=== PATIENT | male | born 1970 | race Caucasian/White ===

== ENCOUNTER 2016-04-08 11:18 | Emergency (ER) | payer MEDICAID ==
[2016-04-08 11:48] VITALS: BMI 33.3
[2016-04-08 11:49] VITALS: TEMP 98
--- NOTE | 2016-04-08 12:51 | EDPRACDOC ---
- General Information Chief Complaint: Neuro Symptoms/Deficits Stated Complaint: SZ Time Seen by Provider: 04/08/16 12:08 Information Source: Family, Guardian, Wood Gouger Mode Of Arrival: Ambulance Home Medications: Home Medications Buspirone HCl [Buspar] 10 mg PO TID 01/06/13 Divalproex Sodium [Depakote] 1,500 mg PO QHS #120 tab 01/01/16 Clotrimazole & Betamethasone [Lotrisone Cream] 2 gm TOP BID 01/19/16 Allergies/Adverse Reactions: Allergies Allergy/AdvReac Type Severity Reaction Status Date / Time omeprazole [From Prilosec] Allergy See Verified 04/08/16 12:55 Comments omeprazole magnesium Allergy See Verified 04/08/16 12:55 [From Prilosec] Comments - History of Present Illness Onset: [employer] Medications/Treatment [employer] EMS Treatment BLS,C-Collar IV No HPI: Patient was apparently getting something out of his closet when he fell backwards, clinical care leader states he was "out of it" for about a minute. He had no seizure like activity - patient has known seizures. Patient had no loss of bowel or bladder, no tongue biting. Patient's beef pusher states he is back to baseline. Does not know if there was LOC. Seizure vs LOC from fall and striking his head. 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 Location: Reports: Occipital Associated Signs and Symptoms: Reports: Seizures ED Past Medical History - History Reviewed Yes Nurses notes reviewed and agree except as marked - Patient Medical History Neurological History: Reports: Seizures Psychological History: Reports: Anxiety. Denies: Depression Systemic History: Denies: Cancer Surgical History: Reports: Tonsillectomy/Adnoidectomy, Other (ESOPHAGEAL DILATION) - Family Medical History Reports: Hypertension, Stroke, Cardiac Disorders. Denies: Diabetes, Cancer - Social Medical History Smoking Status: Never smoker Lives In: Home EDM Review of Systems - Review of Systems ROS Negative Except as Marked: Yes All systems reviewed and were negative except as marked ROS Unobtainable: Yes Review of systems cannot be obtained due to the patient's medical condition - Physical Exam Constitutional: Alert (Awake), No apparent distress Last recorded Vital Signs: Last Vital Signs Temp 98 F 04/08/16 11:48 Pulse 74 04/08/16 11:48 Resp 18 04/08/16 11:48 BP 122/74 04/08/16 11:48 Pulse Ox 97 04/08/16 11:48 Oxygen Pulse Oxygen Saturation 97 O2 Device Oxygen Flow Rate Fraction of Inspired Oxygen ( FIO2) - HEENT Head: Normal ( normocephalic) Eye Exam: Normal (PERRL, EOMI, Sclera white) Nose: No Symptoms Reported (septum midline) Neck: Normal (FROM, trachea at midline) - Respiratory/Cardiovascular Respiratory: Normal - CTA (BBS clear to auscultation without adventitious sounds ) Cardiovascular: Normal (RRR without murmur, gallop or rub) - GI Auscultation: Normal (NABS) Tenderness: Non tender - Musculoskeletal Back: Normal (Non-Tender) Extremities: Normal (Normal tone, Pulses 2+ No cyanosis or edema, FROM) - Integumentary Skin: Normal, Warm, Dry - Re-evaluation Re-evaluation 1 Re-evaluation Time: 14:13 Discussed with patient's family - negative CT scans, patient ambulatory to restroom without difficulty. Followup with PCP, return if worse/different. - Results 04/08/16 12:56 04/08/16 12:56 Decision Time to Discharge: 14:15 - Departure Disposition: Home Condition: Good Final Diagnosis: Fall Qualifiers: Encounter type: initial encounter Qualified Code(s): W19.XXXA - Unspecified fall, initial encounter Minor head injury Qualifiers: Encounter type: initial encounter Qualified Code(s): S00.90XA - Unspecified superficial injury of unspecified part of head, initial encounter Instructions: Fall Prevention (ED) Education/Counseling Given To: Family Member Education/Counseling Given Regarding: Diagnosis, Treatment, Prognosis, Follow Up Referrals: Reinaldo Byrd MD [Primary Care Provider] - 1-2 days Prescriptions: No Action Buspirone HCl [Buspar] 10 mg PO TID Divalproex Sodium [Depakote] 1,500 mg PO QHS #120 tab Clotrimazole & Betamethasone [Lotrisone Cream] 2 gm TOP BID Additional Instructions: Please followup with PCP in 1-2days. Return to ED if symptoms worsen/change or concerns arise. Continue at home management.
[2016-04-08 13:08] LABS: MPV 7.9 fL (7.4-10.4)
[2016-04-08 13:21] LABS: BLOOD UREA NITROGEN 10 MG/DL (9-20); CALC CORRECTED 9.1 MG/DL (8.4-10.2); CALCIUM 8.1 MG/DL (8.4-10.2); CALCULATED OSMOLALITY 258 MOs/Kg (270-290); CHLORIDE 101 mEq/L (98-107); GLUCOSE 88 MG/DL (70-99); SODIUM LEVEL 135 mEq/L (137-146); TOTAL PROTEIN 6.4 G/DL (6.3-8.2)
[2016-04-08] MEDS ORDERED: BUSPIRONE 10 MG TAB PO ONE (13:24)
[2016-04-08 13:26] LABS: VALPROIC ACID LEVEL 67.1 MCG/ML (50-100)
--- NOTE | 2016-04-08 13:42 | DIRPT ---
CLINICAL DATA: Fall EXAM: CT HEAD WITHOUT CONTRAST CT CERVICAL SPINE WITHOUT CONTRAST TECHNIQUE: Multidetector CT imaging of the head and cervical spine was performed following the standard protocol without intravenous contrast. Multiplanar CT image reconstructions of the cervical spine were also generated. COMPARISON: 01/01/2016 FINDINGS: CT HEAD FINDINGS No skull fracture is noted. Paranasal sinuses and mastoid air cells are unremarkable. No intracranial hemorrhage, mass effect or midline shift. No acute cortical infarction. No mass lesion is noted on this unenhanced scan. Stable cerebral and cerebellar atrophy. Ventricular size is stable from prior exam. CT CERVICAL SPINE FINDINGS Axial images of the cervical spine shows no acute fracture or subluxation. Computer processed images shows no acute fracture or subluxation. Computer processed images shows no acute fracture or subluxation. Again noted disc space flattening with mild anterior and mild posterior spurring at C2-C3 level. Partial bony fusion at C3-C4 level again noted. Mild disc space flattening with anterior spurring at C4-C5 level. Significant disc space flattening with moderate anterior spurring at C5-C6 level. Significant disc space flattening with mild anterior spurring at C6-C7 and C7-T1 level. No prevertebral soft tissue swelling. Again noted incomplete fusion with chronic appearance tip of C2 odontoid. Again noted incomplete fusion of posterior arch of C1 vertebral body. 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 There is no pneumothorax in visualized lung apices. No prevertebral soft tissue swelling. Cervical airway is patent. IMPRESSION: 1. No acute intracranial abnormality. Stable atrophy. 2. No cervical spine acute fracture or subluxation. Stable chronic changes as described above. Electronically Signed By: Trevor Kunz M.D. On: 04/08/2016 13:39
[2016-04-08 14:38] LABS: RBC/URINE 0-2 (0-2); WBC/URINE 0-2 (0-2)
[2016-04-08 14:44] LABS: SEG NEUTROPHIL 53 % (45-76); TOTAL CELL COUNT 100
[2016-04-08 14:46] LABS: LEUKOCYTES/URINE NEG (NEGATIVE); NITRITE/URINE NEG (NEGATIVE); URINE OCCULT BLOOD NEG (NEG/TRACE)
[2016-04-08 14:55] VITALS: BP 108/62; PULSE 79
== END 2016-04-08 14:50 | disposition home or self-care (01) ==
LOC: ED 11:18
DX: S00.90XA Unspecified superficial injury of unspecified part of head, initial encounter (principal); X58.XXXA Exposure to other specified factors, initial encounter; Y93.9 Activity, unspecified
CPT/HCPCS: 36415; 70450; 72125; 80053; 80164; 81001; 85007; 85027; 99284; J3490